=== PATIENT | male | born 1970 | race Caucasian/White ===

== ENCOUNTER 2022-03-11 09:47 | Emergency (ER) | payer BC, SELFPAY ==
[2022-03-11 09:56] VITALS: BP 154/82; PULSE 62; RESP 18; TEMP 36.3; O2SAT 99; BMI 35.9
--- NOTE | 2022-03-11 10:15 | ED_ITS ---
HPI - General Adult General Chief complaint: Skin/Abscess/Foreign Body Stated complaint: infected bite,swollen left arm Time Seen by Provider: 03/11/22 09:52 Source: patient Mode of arrival: ambulatory Limitations: no limitations History of Present Illness HPI narrative: Generally healthy 51-year-old male coming in today concerned about increasing redness of his arm. On Monday he had a bug bite at the base of the wrist that has some surrounding erythema, on Monday he got a dog bite to the dorsal surface of the hand. He was seen in the clinic sutured and started on Augmentin. He states that in the last 2 days the redness has increased and is going down his arm. He denies any systemic symptoms. He denies any increasing pain of his hand. He denies any significant drainage from his wound. He denies any difficulty moving his fingers. Related Data Previous Rx's Medication Instructions Recorded sulfamethoxazole 800 1 tab PO BID 7 Days #14 tab 03/11/22 mg-trimethoprim 160 mg tablet (Bactrim DS) Allergies Allergy/AdvReac Type Severity Reaction Status Date / Time No Known Drug Allergies Allergy Verified 03/11/22 09:56 Review of Systems Status of ROS: Reports: 10 or more systems reviewed and unremarkable except as noted in History and below PFSH PFS Surgical History H/O arthroscopic knee surgery Social History Smoking Status: Unknown if ever smoked How often do you have a drink containing alcohol: monthly or less How often do you have six or more drinks on one occasion: Never AUDIT-C Alcohol total score: 1 Non-prescribed substance use: denies use Exam Narrative: Exam Narrative: Overweight, well-developed patient in no acute distress. Alert and oriented. Answers questions appropriately. Mood and affect are appropriate. Thoughts are goal oriented and rational. No tangential or magical thinking noted. Patient speaks in full sentences without needing to catch their breath. HEENT: Normocephalic atraumatic. Pupils are equally round reactive to light. Extraocular muscles are intact. Conjunctivae are moist without any icterus noted. Extremities: Patient has left hand is swollen with a laceration on the dorsal surface of the hand with [address] There is no significant drainage coming from the laceration. The laceration appears to be healing well. He does have swelling of the dorsal surface of the hand with erythema with erythema going up to approximately his mid forearm with some induration. The area is warm to touch. He has full range of motion of all the fingers. Full range of motion at the wrist. Normal radial pulse. Const: Vital Signs, click to edit/add: Vital Signs - 24 hr 03/11/22 09:56 Temperature 97.3 F L Pulse Rate [Right Pulse Oximeter] 62 Respiratory Rate 18 Blood Pressure [Ri ght Upper Arm] 154/82 H Pulse Oximetry 99 Course Vital Signs Vital signs: Initial Vital Signs Temperature 97.3 F L 03/11/22 09:56 Temperature Source Temporal Artery Scan 03/11/22 09:56 Pulse Rate 62 03/11/22 09:56 Respiratory Rate 18 03/11/22 09:56 Blood Pressure 154/82 H 03/11/22 09:56 Blood Pressure Mean 106 03/11/22 09:56 Blood Pressure Position Sitting 03/11/22 09:56 Pulse Oximetry 99 03/11/22 09:56 Oxygen Delivery Method 03/11/22 09:56 Vital Signs Temperature 97.3 F L 03/11/22 09:56 Pulse Rate 62 03/11/22 09:56 Respiratory Rate 18 03/11/22 09:56 Blood Pressure 154/82 H 03/11/22 09:56 Pulse Oximetry 99 03/11/22 09:56 Temperature 97.3 F L 03/11/22 09:56 Pulse Rate 62 03/11/22 09:56 Respiratory Rate 18 03/11/22 09:56 Blood Pressure 154/82 H 03/11/22 09:56 Pulse Oximetry 99 03/11/22 09:56 Medical Decision Making [facility] Narrative Medical decision making narrative: We discussed our options today and decided to switch his antibiotic to Bactrim for better staph coverage. We did not remove his sutures as the wound itself appears to be healing appropriately. We also proceeded with 1 g of IM Rocephin while he was here. We discussed close monitoring of the amount of redness. The red area is outlined today. We discussed the need for potential IV antibiotics. Patient was agreeable with everything we discussed understands what monitoring should look like will return with any concerns. Discharge Plan Discharge Clinical Impression: Cellulitis Patient Disposition: Home, Self-Care Condition: Stable Additional Instructions: Stop Augmentin and start Bactrim as prescribed. Monitor increasing redness. If in the next 24-48 hours you have significant increasing the amount of redness of your arm, return to the ER. Also return if you develop fever, vomiting or weakness. Prescriptions: New sulfamethoxazole-trimethoprim [Bactrim DS] 800-160 mg tablet 1 tab PO BID 7 Days Qty: 14 0RF Follow Up/Referrals: Marquise Zacarias MD [Primary Care Provider] - Stand Alone Forms: [employer] Info Instructions
[2022-03-11] MEDS: cefTRIAXone 1 GM VIAL IM (10:30)
== END 2022-03-11 10:47 | disposition home or self-care (01) ==
LOC: ED 10:22
PROVIDERS: Emergency Provider Family Medicine; PCP Student in an Organized Health Care Education/Training Program
DX: L03.114 Cellulitis of left upper limb (principal)
CPT/HCPCS: 96372; 99283; 99284; J0696